=== PATIENT | male | born 1965 | race Hispanic/Latino ===

== ENCOUNTER 2020-08-18 16:09 | Emergency (ER) | payer BC, OTHER ==
[~2020-08-18] VITALS: Ht 165.1 cm; Wt 110.0 kg
[~2020-08-18 16:09] MED LIST: Z.0.COZAAR50 MG; Z.0.LIPITOR10 MG
[2020-08-18] MEDS ORDERED: METOPROLOL SUC100 MG (16:27)
[2020-08-18] MEDS ORDERED: FENOFIBRATE134 MG (16:27)
[2020-08-18] MEDS ORDERED: TRIAMTERENE-HCTZ1 EA PO (16:27)
[2020-08-18] MEDS ORDERED: LOSARTAN POTAS100 MG PO (16:27)
[2020-08-18] MEDS ORDERED: ATORVASTATIN CA20 MG PO (16:27)
[2020-08-18] MEDS ORDERED: METFORMIN HCL500 MG PO (16:27)
[2020-08-18] MEDS ORDERED: ASPIRIN EC81 MG PO (16:27)
[2020-08-18] MEDS ORDERED: VITAMIN D350 MCG (16:27)
[2020-08-18] MEDS ORDERED: LEXAPRO20 MG PO (16:27)
[2020-08-18] MEDS ORDERED: MULTI-VITAMIN1 EACH PO (16:27)
[2020-08-18] MEDS ORDERED: FAMOTIDINE 20 MG/2 ML VIAL IV STA (16:31)
[2020-08-18] MEDS ORDERED: ONDANSETRON HCL INJ 2MG/ML 2ML 2 MG/ML VIAL IV STA (16:31)
[2020-08-18] MEDS ORDERED: SODIUM CHLORIDE 0.9% 1000ML 1,000 ML IV SCH (16:45)
[2020-08-18] MEDS ORDERED: LIDOCAINE VISC 2% SOLN 15 ML UDC ONE (16:57)
[2020-08-18] MEDS ORDERED: SODIUM CHLORIDE 0.9% 1000ML 1,000 ML ONE (16:57)
[2020-08-18] MEDS ORDERED: MAGNESIUM/ALUMINUM/SIMETHICONE 30 ML UDC ONE (16:57)
[2020-08-18] MEDS ORDERED: ONDANSETRON HCL INJ 2MG/ML 2ML 2 MG/ML VIAL ONE (16:57)
[2020-08-18] MEDS ORDERED: FAMOTIDINE 20 MG/2 ML VIAL IV ONE (16:57)
[2020-08-18] MEDS ORDERED: DONNATAL/LIDOCAINE/MAALOX 30 ML SUSP PO ONE (17:30)
[2020-08-18] MEDS ORDERED: MAGNESIUM/ALUMINUM/SIMETHICONE 30 ML UDC PO ONE (17:30)
[2020-08-18] MEDS ORDERED: BELLADONNA ALK/PHENOBARBITAL 5 ML UDC PO ONE (17:30)
[2020-08-18] MEDS ORDERED: LIDOCAINE VISC 2% SOLN 15 ML UDC PO ONE (17:30)
[2020-08-18] MEDS ORDERED: ONDANSETRON ODT4 MG PO (17:33)
[2020-08-18 18:23] VITALS: BP 151/94
== END 2020-08-18 18:20 | disposition home or self-care (01) ==
LOC: FSED 16:21
DX: R10.13 Epigastric pain (principal); K52.9 Noninfective gastroenteritis and colitis, unspecified; E86.0 Dehydration; E86.1 Hypovolemia; E11.65 Type 2 diabetes mellitus with hyperglycemia; I10 Essential (primary) hypertension; E78.00 Pure hypercholesterolemia, unspecified
CPT/HCPCS: 80048; 80076; 82553; 84484; 85025; 93005; 96374; 96375; 99283; J2405; J7030